=== PATIENT | female | born 1955 | race Caucasian/White ===

== ENCOUNTER 2019-01-06 01:41 | Emergency (ER) | payer MEDICARE, OTHER ==
[2019-01-06 02:14] VITALS: BMI 34.7
[2019-01-06] MEDS ORDERED: RYTHMOL SR225 MG PO (02:16)
[2019-01-06] MEDS ORDERED: BAYER CHEWABLE81 MG PO (02:16)
[2019-01-06] MEDS ORDERED: ROBAXIN500 MG PO (02:17)
[2019-01-06] MEDS ORDERED: XANAX0.25 MG PO (02:17)
[2019-01-06] MEDS ORDERED: LISINOPRIL10 MG PO (02:17)
[2019-01-06] MEDS ORDERED: MAXZIDE 75/501 TAB PO (02:17)
[2019-01-06] MEDS ORDERED: TRAZODONE HCL300 MG PO (02:18)
[2019-01-06] MEDS ORDERED: ULTRAM50 MG PO (02:18)
[2019-01-06] MEDS ORDERED: HYDROCODON-ACE1 EAC7 PO (03:52)
[2019-01-06 04:15] VITALS: BP 132/74
== END 2019-01-06 04:15 | disposition home or self-care (01) ==
LOC: D.ER 01:41
DX: S40.011A Contusion of right shoulder, initial encounter (principal); S20.211A Contusion of right front wall of thorax, initial encounter; S40.021A Contusion of right upper arm, initial encounter; W19.XXXA Unspecified fall, initial encounter; Y93.89 Activity, other specified; Y92.89 Other specified places as the place of occurrence of the external cause